=== PATIENT | male | born 1965 | race Caucasian/White ===

== ENCOUNTER 2021-10-04 00:52 | Day surgery (SDC) | payer OTHER, SELFPAY ==
[2021-09-21 14:42] VITALS: BMI 26.4
[2021-10-04 09:11] VITALS: BP 132/81; PULSE 56; RESP 20; TEMP 36.2; O2SAT 100; BMI 26.4
[2021-10-04] MEDS: LACTATED RINGERS 1,000 ML 150 ML IV CONT (09:17)
--- NOTE | 2021-10-04 09:40 | WPDGICN ---
Assessment and Plan Assessment and plan (1) Encounter for screening colonoscopy: Code(s): Z12.11 - Encounter for screening for malignant neoplasm of colon Status: Acute Assessment and Plan: Patient presents for screening colonoscopy. Appears to be at average risk for colon polyps. He has healed up from prior episode of diverticulitis 2 years ago. Plan for high-fiber diet. Further recommendations may be given after endoscopy. GI Consult Note Consult date/time: 10/04/21 09:40 Reason for consult: Neoplasia screening. HPI: Cornelius Huggins is a 56 year old male Presents for screening colonoscopy. Patient's current weight appetite and bowel movements are normal. He denies abdominal pain. Patient has had no bleeding. Family history noncontributory. Patient does report episode of diverticulitis 2 years ago. He has never previously had a colonoscopy. Review of Systems Review of Systems: Review of systems noncontributory. FORMERLY [facility] Social History Social History Smoking status: Never smoker Alcohol intake: current Drinks per week: 12 Substance use: current Substance use type: marijuana Other substance usage details: occasional Living arrangements: with family Spiritual care concerns: No Meds Home Medications and Allergies Home Medications Medication Instructions Recorded Confirmed Type sodium sul 1.479 gram-potas ch See Rx Instructions PO PER PKG DIR 08/27/21 10/04/21 Rx 0.188 gram-magnes sul 0.225 gram #24 tabs tablet (Sutab) atorvastatin 10 mg tablet 10 mg PO DAILY 09/21/21 09/21/21 History Allergies Allergy/AdvReac Type Severity Reaction Status Date / Time No Known Allergies Allergy Verified 10/04/21 09:08 Vital Signs Vital Signs - 24 hr 10/04/21 09:11 Temperature 97.1 F L Pulse Rate 56 L Respiratory Rate 20 Blood Pressure 132/81 Pulse Oximetry 100 Oxygen Delivery Room Air Exam Narrative: Physical exam reveals patient to be alert. Vital signs stable. HEENT exam is unremarkable. Patient is anicteric. Lungs are clear to auscultation and percussion. Heart is without murmur or extra sounds. Abdominal exam bowel sounds are present soft nontender with no organomegaly. Digital external rectal exam is normal.
--- NOTE | 2021-10-04 09:48 | P.PNAN_ITS ---
Anes - Initial Pre Proc Eval Procedure: Operation Date: 10/04/21 10:00 Proposed Procedures p Screening Colonoscopy - Tien Mon MD Date/Time: 10/04/21 09:48 Surgeon: Tien Mon MD Pre Op Diagnosis: neoplasm screening Patient Data Age: 56 Gender: M Height: 1.8 m Weight: 85.9 kg Last Vital Signs Temp 97.1 F L 10/04/21 09:11 Pulse 56 L 10/04/21 09:11 Resp 20 10/04/21 09:11 BP 132/81 10/04/21 09:11 Pulse Ox 100 10/04/21 09:11 O2 Del Method Room Air 10/04/21 09:11 Allergies Allergy/AdvReac Type Severity Reaction Status Date / Time No Known Allergies Allergy Verified 10/04/21 09:08 Home Medications Medication Instructions Recorded Confirmed Type sodium sul 1.479 gram-potas ch See Rx Instructions PO PER PKG DIR 08/27/21 10/04/21 Rx 0.188 gram-magnes sul 0.225 gram #24 tabs tablet (Sutab) atorvastatin 10 mg tablet 10 mg PO DAILY 09/21/21 09/21/21 History Patient hx anesthesia problems: none Family hx anesthesia problems: none Results Review: All pre-operative results and documents have been reviewed as part of the pre- operative evaluation. FOR[facility], [facility] Social History Social History Smoking status: Never smoker Alcohol intake: current Drinks per week: 12 Substance use: current Substance use type: marijuana Other substance usage details: occasional Living arrangements: with family Spiritual care concerns: No Anes - Eval Final PreProcedure Day of Procedure 10/04/21 09:48 Patient weight: normal Heart: regular rate and rhythm Lungs: clear to auscultation Airway: Mallampati scale class II Neurological: alert and oriented Last oral intake: >/= 8 hours ASA classification: II Emergent: no Anesthetic plan: proceed Anesthesia type and monitoring: general GIVS and standard monitoring Results Review: All pre-operative results and documents have been reviewed as part of the pre- operative evaluation. Informed Consent: The patient's anesthetic plan and its attendant risks and benefits were discussed with the patient/family/POA. Questions were solicited and answers provided to the satisfaction of the patient/family/POA.
[2021-10-04 10:07] VITALS: BP 107/78; PULSE 62; RESP 22; O2SAT 97
[2021-10-04 10:17] VITALS: BP 109/73; PULSE 52; RESP 14; O2SAT 99
[2021-10-04 10:26] VITALS: BP 119/90; PULSE 56; RESP 18; O2SAT 100
== END 2021-10-04 10:35 | disposition home or self-care (01) ==
PROVIDERS: PCP Internal Medicine; Visit Provider Internal Medicine Gastroenterology
PROC: 0DJD8ZZ Inspection of Lower Intestinal Tract, Via Natural or Artificial Opening Endoscopic (ICD-10-PCS; CPT 45378; principal; 2021-10-04 10:00)
DX: Z12.11 Encounter for screening for malignant neoplasm of colon (principal); D12.5 Benign neoplasm of sigmoid colon; K57.30 Diverticulosis of large intestine without perforation or abscess without bleeding; F12.90 Cannabis use, unspecified, uncomplicated
CPT/HCPCS: 45385; 88305; J2704; J7120